=== PATIENT | female | born 1980 | race Hispanic/Latino ===

== ENCOUNTER 2018-04-28 05:37 | Emergency (ER) | payer OTHER ==
[2018-04-28 06:40] LABS: #Eosinphils 0.1 thou/uL (0.0-0.7); #Lymphocytes 2.4 thou/uL (1.20-3.40); #Monocytes 0.6 thou/uL (0.11-0.59); #Neutrophils 5.3 thou/uL (1.40-6.50); %Basophils 0.4 % (0.0-1.0); %Eosinophils 0.8 % (0.0-10.0); %Lymphocytes 28.8 % (21.0-51.0); %Monocytes 6.6 % (0.0-10.0); %Neutrophils 63.4 % (42.0-75.0); Hemoglobin 12.1 g/dL (12.0-16.0); Mean Corpuscular Hemoglobin 28.6 pg (27.0-31.0); Mean Corpuscular Volume 84.1 fL (78.0-98.0); Mean Platelet Volume 8.9 fL (7.4-10.4); Platelet Count 180 thou/uL (130-400); RBC Distribution Width 14.6 % (11.5-14.5); Red Blood Cell (RBC) Count 4.22 mill/uL (4.20-5.40); White Blood Cell (WBC) Count 8.4 thou/uL (4.8-10.8)
[2018-04-28 07:08] LABS: Bilirubin Negative (Negative); Blood, Urine Negative (Negative); Clarity CLEAR (Clear); Glucose, Urine (Dipstick) Negative (Negative); Leukocyte Negative (Negative); Nitrite Negative (Negative); Protein, Urine (Dipstick) Negative (Neg-Trace); Specific Gravity, Urine 1.027 (1.002-1.036); Urobilinogen 0.2 mg/dL (0.2-1.0)
[2018-04-28] MEDS ORDERED: Morphine 4 MG/ML VIAL ONE (08:31)
--- NOTE | 2018-04-28 08:33 | ULT ---
PRELIMINARY REPORT/[facility]/EMERGENTY AFTER-HOURS PROCEDURE US First Trimester, Transabdominal EXAM DATE/TIME: 04/28/2018 6:37 AM CLINICAL HISTORY: 37 years old, female; Signs and symptoms; Lmp or gestational age (in weeks): 11 w 1 d; Other: Heavy b leeding, passing large clots; TECHNIQUE: Real-time transabdominal obstetrical ultrasound of the maternal pelvis and a first trimester pregnanc y with image documentation. COMPARISON: No relevant prior studies available. FINDINGS: GESTATION: Single living intrauterine fetus with a pole crown-rump length measuring 4.34 cm wit h an estimated gestational age of 11 weeks and 1 day and EDC of 11/16/2018. The heart rate is 1 78 beats per minute. The fetus is low-lying within an oblong elongated gestational sac, suspicious for a possible developi ng miscarriage/inevitable . PLACENTA/AMNIOTIC FLUID: Cannot be adequately evaluated due to the early gestational age. UTERUS/CERVIX: Unremarkable. No myometrial mass. The uterus measures 13.0 x 6.6 x 6.5 cm. OVARIES: Unremarkable. No mass. Normal vascular flow in both ovaries. The right ovary with measures 3 .9 x 2.2 x 2.4 cm. The left ovary measures 2.3 x 3.2 x 2.8 cm. FREE FLUID: No free fluid. IMPRESSION: 1. Single living intrauterine fetus with a pole crown-rump length measuring 4.34 cm with an est imated gestational age of 11 weeks and 1 day and EDC of 11/16/2018. The heart rate is 178 beats per minute. 2. The fetus is low-lying within an oblong elongated gestational sac, suspicious for a possible devel oping miscarriage/inevitable . Thank you for allowing us to participate in the care of your patient. Dictated and Authenticated by: Yunior Cr MD 04/28/2018 8:06 AM Central Time (US & Desi) FINAL REPORT BY DR. [facility] AFTER HOURS STUDY ULTRASOUND PELVIS: DATE: 04/28/18. TIME: 6:41 a.m. HISTORY: A 37-year-old female in late 1st trimester of who presents with heavy vaginal blee ding and lower abdominal/pelvic pain. COMPARISON: None. FINDINGS: There is an intrauterine gestational sac which is indented posteriorly by an approximately 4.5 x 4.5 cm intermediate echogenicity mass-like structure at the posterior body of the uterus, which could eit her be a Tompkins-Awad contraction or a large uterine fibroid. The fetus is at the inferior portion of the gestational sac. [place]-rump length is 4.3 cm, corresponding to 11 w 1 d gestational age. Fet al heart rate is 178 b.p.m. No subchorionic hemorrhage is visualized. No free fluid in the cul-de-s ac. Bilateral ovaries are visualized, within normal limits in size and blood flow demonstrated. No major disagreement with preliminary report by [facility]. IMPRESSION: 1. Late, live 1st trimester intrauterine gestation estimated to be 11 weeks 1 day gestational age. 2. Tompkins-Awad contraction versus uterine fibroid (leiomyoma) deforming the gestational sac. 3. Somewhat low position of the fetus within the stretched gestational sac. The possibility of impe nding miscarriage/ is raised. POS: DICK
[2018-04-29 21:53] LABS: Chlamydia by PCR Not Detected (NotDetected); GC by PCR Not Detected (NotDetected)
== END 2018-04-28 10:39 | disposition home or self-care (01) ==
LOC: ERS 05:37
DX: O03.9 Complete or unspecified spontaneous abortion without complication (principal); Z3A.11 11 weeks gestation of pregnancy
CPT/HCPCS: 36415; 51701; 76856; 81003; 84702; 85025; 86900; 86901; 87480; 87491; 87510; 87591; 87660; 88305; 93976; 96372; A4353; J2270

== ENCOUNTER 2018-09-28 10:58 | Outpatient (CLI) | payer OTHER ==
--- NOTE | 2018-09-28 13:31 | ULT ---
PELVIC ULTRASOUND INCLUDING TRANSABDOMINAL AND TRANSVAGINAL AND VASCULAR DUPLEX WITH COLOR AND SPECTR AL DOPPLER IMAGING: HISTORY: Pelvic pain. FINDINGS: The uterus is unremarkable measuring 8.0 x 3.9 x 4.7 cm with an endometrium of 0.7 cm. The right ova ry measures 2.0 x 3.0 x 3.8 cm. The left ovary measures 2.5 x 2.9 x 3.2 cm. There are multiple some what peripherally located follicles in both ovaries. Findings are consistent with that of polycystic ovary disease. No abscess or abnormal fluid collection. Incidental uterine cervical nabothian cyst . IMPRESSION: Minimally enlarged ovaries bilaterally with numerous peripheral follicles, evidence for polycystic ov arpan disease. No other significant acute process. POS: DICK
== END 2018-09-28 10:59 | disposition home or self-care (01) ==
LOC: BICULT 10:58
PROVIDERS: ATTEND Nurse Practitioner
DX: R10.2 Pelvic and perineal pain (principal); N83.8 Other noninflammatory disorders of ovary, fallopian tube and broad ligament; E28.2 Polycystic ovarian syndrome
CPT/HCPCS: 76856

== ENCOUNTER 2019-06-07 16:29 | Emergency (ER) | payer OTHER, SELFPAY ==
[2019-06-07] MEDS ORDERED: Lorazepam 1 MG TAB ONE (18:26)
== END 2019-06-07 18:48 | disposition home or self-care (01) ==
LOC: ERS 16:29
DX: J06.9 Acute upper respiratory infection, unspecified (principal); F41.9 Anxiety disorder, unspecified
CPT/HCPCS: 99283